=== PATIENT | male | born 1990 | race American Indian/Alaskan Native ===

== ENCOUNTER 2018-12-31 00:53 | Emergency (ER) | payer SELFPAY ==
[2018-12-31 01:06] VITALS: BP 107/70
[2018-12-31] MEDS ORDERED: IBUPROFEN PO ONE (01:54)
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
== END 2018-12-31 03:50 | disposition home or self-care (01) ==
LOC: ED 00:53
DX: M25.571 Pain in right ankle and joints of right foot (principal); G89.29 Other chronic pain; F17.200 Nicotine dependence, unspecified, uncomplicated; F12.10 Cannabis abuse, uncomplicated; Z79.1 Long term (current) use of non-steroidal anti-inflammatories (NSAID); X50.1XXA Overexertion from prolonged static or awkward postures, initial encounter; Y93.01 Activity, walking, marching and hiking; Y92.89 Other specified places as the place of occurrence of the external cause; Y99.8 Other external cause status
CPT/HCPCS: 99283

== ENCOUNTER 2019-07-02 13:41 | Emergency (ER) | payer SELFPAY ==
[2019-07-02 14:47] VITALS: BP 111/61
--- NOTE | 2019-07-02 14:47 | Emergency Department Report ---
Chief Complaint: Extremity Problem,Nontraumatic Stated Complaint: ANKLE PAIN Time Seen by Provider: 07/02/19 14:45 MSE screening note: Focused history and physical exam performed. Due to findings the following was ordered: Mr. Christina has chronic pain in right ankle for 3 years. BETTY, provided referral. ED Disposition for BETTY Clinical Impression: Ankle pain Disposition: Z- MED SCREENING EXAM-LEFT Condition: Stable Referrals: TEAGAN PETER MD [Staff Physician] - 3-5 Days
== END 2019-07-02 15:35 | disposition left against medical advice (07) ==
LOC: ED 13:41
DX: M25.571 Pain in right ankle and joints of right foot (principal)
CPT/HCPCS: 99282